=== PATIENT | female | born 1990 | race Caucasian/White ===

== ENCOUNTER 2021-10-21 13:03 | Emergency (ER) | payer OTHER, SELFPAY ==
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
[2021-10-21 13:14] VITALS: BP 115/64; PULSE 64; RESP 16; TEMP 36.6; O2SAT 100
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
== END 2021-10-21 14:09 | disposition home or self-care (01) ==
PROVIDERS: Emergency Provider Nurse Practitioner Family; PCP Family Medicine
DX: M79.642 Pain in left hand (principal); V49.60XA Unspecified car occupant injured in collision with unspecified motor vehicles in traffic accident, initial encounter
CPT/HCPCS: 73130; 99203; G0463

== ENCOUNTER 2025-02-24 16:11 | Outpatient (CLI) | payer BC, SELFPAY ==
--- NOTE | ~2025-02-24 | US_ITS ---
EXAMINATION: US soft tissue UE RT DATE: 02/24/2025 16:46 INDICATION: Palpable area at the anterior aspect of the lower right arm TECHNIQUE: Multiple grayscale and Doppler ultrasound images of the region of concern at the anterior aspect of the right forearm were obtained. COMPARISON: None FINDINGS: Palpable abnormality corresponds to a 7 x 7 x 3 mm ovoid lesion in the subcutaneous fat which is very hypoechoic peripherally surrounding couple small echogenic fat. Appearance suggests a small amount o f interstitial fluid with feathery edema related to inflammation of indeterminate etiology or contusi on with minimal amount of blood. IMPRESSION: 1. 7 x 7 x 3 mm lesion in the subcutaneous fat with appearance suggesting a focal small amount of flu id extending between small focus of normal subcutaneous fat most likely infectious, inflammatory or p osttraumatic in etiology. Reviewed, dictated and finalized at location A. IMPRESSION: 1. 7 x 7 x 3 mm lesion in the subcutaneous fat with appearance suggesting a foc al small amount of fluid extending between small focus of normal subcutaneous f at most likely infectious, inflammatory or posttraumatic in etiology.
--- OUTSIDE RECORDS SUMMARY | 2025-02-24 16:16 | XMS_ITS | Referral Summary ---
Author Organization [facility] Address [address] [place] [phone] Care Team Providers Care Coat Fitter Name Role Phone Makenzie Carrasco MD Primary Care Provider Colby Rodriguez MD Unavailable [phone] Encounters Date Type Department Care Team Description 02/23/2025 3:15 PM CDT Office Visit [address] [address] Colby Rodriguez MD Post-operative state (Primary Dx) 02/10/[address] [place] [phone] Colby Rodriguez MD low grade fever after surgery 02/10/[address] [place] [phone] Colby Rodriguez MD Additional Services Or Orders 02/07/2025 9:49 AM CDT - 02/10/2025 11:43 AM CDT Hospital Encounter [address] [address] Colby Rodriguez MD Beirne, Gregory J., Ruptured ectopic (Primary Dx); Pain Discharge Disposition: Discharge to home or self care 02/09/2025 3:19 PM CDT Anesthesia Event [facility] Operating Room [address] [place] [address] Frederick Zepeda MD Temme, Angela S., BENSON 02/09/2025 2:50 PM CDT - 02/09/2025 4:25 PM CDT Surgery [facility] Operating Room [facility] [place] [address] Colby Rodriguez MD ECTOPIC - LAPAROSCOPY, LEFT SALPINGOOPHORECTOMY 02/09/2025 12:26 PM CDT - 02/09/2025 11:59 PM CDT Hospital Encounter [facility] [address] [facility] [address] [place] [address] Spotting in Discharge Disposition: Discharge to home or self care 02/09/2025 Telephone [facility] [address] [phone] Colby Rodriguez MD OB 02/06/2025 Telephone [facility] [address] [place] [address] [place] [phone] Darlyn Padilla MD 02/04/2025 Telephone [facility] [address] [place] [address] [place] [phone] Colby Rodriguez MD 02/03/2025 Telephone [facility] [address] [place] [phone] Colby Rodriguez MD + test 01/01/2025 8:05 PM CDT E-Visit [facility] Medical [facility] [address] [place] [address] Marjorie Sinha, IZABELLA E-Visit for Sinus 01/01/2025 Patient Self-Triage [facility] [address] [place] [id number] Ann Marie, Generic Provider 12/09/2024 9:05 AM VP RESPIRATORY E-Visit [facility] Medical Group Virtual [address] [phone] Karen Ford NP Your Medications 12/09/2024 Patient Self-Triage [facility] [address] [place] [address] Mychart, Generic Provider from Last 3 Months Allergies Active Allergy Reactions Criticality Noted Date Comments Prednisone Anaphylaxis High 02/08/2021 Medications acetaminophen (TYLENOL) 325 mg tablet Take 2 tablets (650 mg total) by mouth every 6 (six) hours as needed for pain Active ibuprofen (ADVIL,MOTRIN) 600 mg tablet Take 1 tablet (600 mg total) by mouth 4 (four) times a day as needed for pain (pain) 90 tablet 5 10/07/20 25 Active progesterone (PROMETRIUM) 200 mg capsule Take 1 capsule (200 mg total) by mouth 2 (two) times a day 60 capsule 2 5 02/11/20 25 Discontinu ed(Stop Taking at Discharge) oxyCODONE (ROXICODONE) 5 mg immediate release tabletIndicatio ns:Pain Take 1 tablet (5 mg total) by mouth every 4 (four) hours as needed for pain 12 tablet 5 02/11/20 25 Discontinu ed(Stop Taking at Discharge) oxyCODONE (ROXICODONE) 5 mg immediate release tabletIndicatio ns:Pain Take 1 tablet (5 mg total) by mouth every 4 (four) hours as needed for pain 12 tablet 5 02/11/20 25 Discontinu ed(Stop Taking at Discharge) Active Problems Problem Noted Date Diagnosed Date Ruptured ectopic 02/07/2025 RUQ pain 01/16/2022 Assessment & Plan (01/16/2022 3:31 PM CDT): Likely related to gallbladder pathology, unclear prior workup. Will obtain prior records. Will repeat labs and imaging. BMI 30.0-30.9,adult 11/16/2021 Overview (11/16/2021): BMI Follow-up includes: nutrition counseling, exercise counseling and education provided. Assessment & Plan (01/16/2022 7:23 AM CDT): BMI Follow-up includes: nutrition counseling, exercise counseling and education provided. Anxiety with depression 11/16/2021 Assessment & Plan (01/16/2022 3:32 PM CDT): Chronic, improved. Continue to monitor without medication Assessment & Plan (11/16/2021 4:58 PM VP RESPIRATORY): Chronic, intermittent and uncontrolled -Given her prior intolerance of SSRI, I recommended starting Effexor. We review side effects of nausea, dizziness, drowsiness. -Discussed behavioral health therapy and patient is interested. Resources provided -Reviewed phone apps such as [employer] and [employer] -Also reviewed exercise in particular in detail. Suggested 3-5 exercise sessions per week -For any SI/HI, discussed calling the crisis hotline at 1/[phone] or or call Other specified hypothyroidism 11/16/2021 Overview (11/16/2021): Diagnosed in early . Assessment & Plan (01/16/2022 3:32 PM CDT): Has been off synthroid for about 2 months. Will reassess TSH today. If wnl, ok to remain off medication. Assessment & Plan (11/16/2021 5:04 PM VP RESPIRATORY): This was diagnosed during early course. She inquired whether Synthroid needed to be continued indefinitely. I advised that we reassess labs today and if normal, can discontinue Synthroid and plan to reassess off medications in 6 weeks. If TFTs are normal at that time, can defer further treatment. Encounter to establish care 11/16/2021 Assessment & Plan (11/16/2021 4:57 PM VP RESPIRATORY): Patient was oriented to practice. I advised that she call office for any urgent concerns and reserve [employer] communication for nonurgent issues. She is aware that most lab/test results will be communicated through [employer] if this is set up. Discussed that she should schedule apt for any new symptoms and always inform me of any worsened symptoms that have been previously discussed. All questions were answered Estimated Date of Delivery Comme nts Yes 10/17/2025 Resolved Problems Problem Noted Date Diagnosed Date Resolved Date Intrauterine 07/19/202108/30 Encounter for care or examin ation of mother immediately after delivery 07/19/2021 08/30/2021 Positive testing for group B Streptococcus 07/04/2021 08/30/2021 Immunizations Immunization Administration Dates Next Due Influenza, Quadrivalent, Spl it, Preservative Free, Intramuscular 09/05/2018 Influenza, Unspecified 08/31/2021 Pfizer SARS-CoV-2 Monovalent Vaccination (12+ Yrs) PURPLE 06/23/2021 Tdap 05/09/2021,02/03/2019 Social History Tobacco Use Types Packs/Day Years Used Date Smoking Tobacco: Never Tobacco Cessation:Counseling Given: Not Answered AUDIT-C Answer Date Recorded Q1: How often do you have a drink containing alcohol? Never 02/09/2025 Q2: How many drinks containi ng alcohol do you have on a typical day when you are drinking? Patient does not drink Q3: How often do you have si x or more drinks on one occasion? Never 02/09/2025 PHQ-2 Answer Date Recorded PHQ-2 Total Score (If total score is 3 or more points, staff should administer the PHQ-9) 0 01/16/2022 [place] Depression Scale Answer Date Recorded [place] Depression Scale Total 7 07/21/2021 The thought of harming myself has occurred to me . Never 07/21/2021 Personal Safety Answer Date Recorded Have you ever been in or are you currently in a harmful physical or emotional relationship or is someone making you feel afraid or unsafe? Denies 02/09/2025 Estimated Date of Delivery Comme nts Yes 10/17/2025 Sex and Gender Information Value Date Recorded Sex Assigned at Not on file Legal Sex Female 10:39 AM VP RESPIRATORY Gender Identity Female 11/15/2021 10:21 PM VP RESPIRATORY Sexual Orientation Straight 11/15/2021 10 :21 PM VP RESPIRATORY Last Filed Vital Signs Vital Sign Reading Time Taken Comments Blood Pressure 119/58 02/10/2025 8:22 AM CDT Pulse 67 02/10/2025 8:22 AM CDT Temperature 36.3 C (97.3 F) 02/10/2025 8:22 AM CDT Respiratory Rate 16 02/10/2025 8:22 AM CDT Oxygen Saturation 100% 02/10/2025 8:22 AM CDT Inhaled Oxygen Concentration - - Weight 63.5 kg (140 lb) 02/09/2025 3:05 PM CDT Height 160 cm (5' 2.99 ) 02/23/2025 3:03 PM CDT Body Mass Index 24.8 02/09/2025 3:05 PM CDT Plan of Treatment Not on file Procedures Procedure Name Priority Date/Time Associated Diagnosis Comments CBC WITHOUT DIFFERENTIAL Routine 02/13/2025 8:33 AM CDT Ectopic , unspecified location, unspecified whether intrauterine present HCG, BLOOD, QUANTITATIVE Routine 02/13/2025 8:33 AM CDT Ectopic , unspecified location, unspecified whether intrauterine present SURGICAL PATHOLOGY Routine 02/09/2025 3: 57 PM CDT Pain TX AN PROCEDURE PLACEHOLDER Routine 02/09/2025 3:32 PM CDT TX AN ELECTIVE ENDOTRACHEAL AIRWAY Routine 02/09/2025 3:32 PM CDT LAPAROSCOPIC SALPINGECTOMY 02/09/2025 3:18 PM CDT pain US OB UNDER 14 WEEKS Schedule THEO, Read THEO (Appt Today, Awaiting Results) 02/09/2025 12:26 PM CDT Spotting in HCG, BLOOD, QUANTITATIVE STAT 02/09/2025 8:22 AM CDT CBC WITHOUT DIFFERENTIAL STAT 02/09/2025 8:22 AM CDT DIFFERENTIAL AUTO STAT 02/08/2025 5:0 2 AM CDT HCG, BLOOD, QUANTITATIVE STAT 02/08/2025 5:02 AM CDT CBC WITH AUTO DIFFERENTIAL STAT 02/08/2025 5:02 AM CDT US OB UNDER 14 WEEKS W ENDOVAGINAL ED 02/07/2025 1:21 PM CDT POCT HCG, URINE Routine 02/07/2025 10:43 AM CDT URINALYSIS, MICROSCOPIC ONLY STAT 02/07/2025 10:38 AM CDT URINALYSIS AND REFLEX TO MICROSCOPIC AND CULTURE STAT 02/07/2025 10:38 AM CDT ADD ON LAB TEST Add-On 02/07/2025 10:33 AM CDT EGFR STAT 02/07/2025 10:25 AM CDT HCG, BLOOD, QUANTITATIVE STAT 02/07/2025 10:25 AM CDT DIFFERENTIAL AUTO STAT 02/07/2025 10: 25 AM CDT LIPASE STAT 02/07/2025 10:25 AM CDT COMPREHENSIVE METABOLIC PANEL STAT 02/07/2025 10:25 AM CDT CBC WITH AUTO DIFFERENTIAL STAT 02/07/2025 10:25 AM CDT ECG 12-LEAD STAT 02/07/2025 9:57 AM CDT PROGESTERONE Routine 02/06/2025 7:51 AM CDT Absence of menstruation HCG, BLOOD, QUANTITATIVE Routine 02/06/2025 7:51 AM CDT Absence of menstruation PROGESTERONE Routine 02/03/2025 12:32 PM CDT Spotting in HCG, BLOOD, QUANTITATIVE Routine 02/03/2025 12:32 PM CDT Spotting in PAP AND HPV, REFLEX TO HPV GENOTYPES Routine 11/12/2024 11:17 AM VP RESPIRATORY Screening for cervical cancer from Last 3 Months or Most Recently Relevant to Health Maintenance Results * CBC without differential (02/13/2025 8:33 AM CDT) WBC 10.7 3.8 - 10.8 Thousand/u L [facility] RBC, POC 4.13 3.80 - 5.10 Million/uL [facility] Hgb 12.3 11.7 - 15.5 g/dL [facility] Hct 37.3 35.0 - 45.0 % [facility] MCV 90.3 80.0 - 100.0 fL [facility] MCH 29.8 27.0 - 33.0 pg [facility] MCHC 33.0 32.0 - 36.0 g/dL [facility] Comment: For adults, a slight decrease in the calculated MCHC value (in the range of 30 to 32 g/dL) is most likely not clinically significant; however, it should be interpreted with caution in correlation with other red cell parameters and the patient's clinical condition. Rdw 12.3 11.0 - 15.0 % [facility] Platelets 246 140 - 400 Thousand/u L [facility] MPV 11.0 7.5 - 12.5 fL [facility] Blood 02/13/2025 8:33 AM CDT 02/13/2025 8:33 AM CDT us Colby Rodriguez MD LAB BLOOD ORDERABLES Final Res ult [facility] [address] [address] [facility] [place] [address] * (ABNORMAL) hCG, blood, quantitative (02/13/2025 8:33 AM CDT) HCG, quant 55(H) mIU/mL [facility] Comment: Reference Range Non or premenopausal <5 Postmenopausal <10 Values from different assay methods may vary. The use of this assay to monitor or to diagnose patients with cancer or any condition unrelated to has not been cleared or approved by the FDA or the lapel padder blindstitch of the assay. Blood 02/13/2025 8:33 AM CDT 02/13/2025 8:33 AM CDT us Colby Rodriguez MD LAB BLOOD ORDERABLES Final Res ult [facility] [place] [address] [place] [address] * Surgical pathology (02/09/2025 3:57 PM CDT) Tissue (Endometrial curettings) 02/09/2025 3:57 PM CDT Comment:Specimen placed in f ormalin at end of procedure Tissue specimen (specimen) (Ovary(ies) with or without tube, non-tumor) 02/09/2025 4:15 PM CDT Comment:Formalin added post procedure Narrative PATHOLOGY [facility] - 02/10/2025 2:[address] PM [address]T [address] [address] Tele: Larissa Stahl MD - Educational Specialist Note to Patients: This report may contain a detailed description of human tissue sent by a health care provider to the laboratory for pathologic evaluation. The content of this report is essential for diagnosis and may provide important critical findings. This information may be unfamiliar to patients to review without a medical professional present. It is advised that the patient review this report in the presence of a health care provider who can answer questions and explain the details. SURGICAL PATHOLOGY REPORT Patient Name: REGGIE BASURTO Address: [address] [place] [address] Gender: F : 1990 (Age: 34) Service: Surgery Location: [id number], Hospital #: [id number] Patient Type: [facility] INPATIENT Taken: 02/09/2025 Received 02/09/2025 Reported: 02/10/2025 Physician(s): Tre Rosas M.D. DIAGNOSIS: Uterus, endometrium, curettage: - Gestational endometrium - No evidence of hyperplasia or malignancy Ovary, left, oophorectomy: - Hemorrhagic corpus luteum cyst Fallopian tube, left, salpingectomy: - Dilated fallopian tube with immature chorionic villi consistent with ectopic [facility]/02/10/2025 14:41 Examining Pathologist: Yusuf Campos M.D. Report Reviewed and Electronically Signed By Yusuf Campos M.D. SPECIMEN TYPE: A: ENDOMETRIAL CURETTINGS B: LEFT FALLOPIAN TUBE AND LEFT OVARY CLINICAL IMPRESSION AND HISTORY: Pain, ectopic GROSS DESCRIPTION: A. Received in formalin labeled with REGGIE CAMPNCK and endometrial curettings are multiple red-brown tissue curettings measuring 4.3 x 3.3 x 0.3 cm in aggregate. The specimen is placed in a filter bag. Process Mold Technician sections are submitted in cassette labeled A1. B. Received in formalin labeled with REGGIE CAMPNCK and left fallopian tubes and left ovary is a 14.3 g, 5.3 x 3.3 x 1.5 disrupted cystic ovary with attached 6 x 1 cm fallopian tube with fimbria. The surface of the ovary is smooth. The presumed internal surface of the ovary is smooth containing blood. There are no gross solid areas or papillary vegetations. Sections of the fallopian tubes show a dilated lumen containing blood. There is a 0.8 cm paratubal cyst. Process Mold Technician sections are submitted as follows: B1-B4 - Disrupted cystic ovary, B5 - Fallopian tube [facility]/02/09/2025 17:49 LKB,CU MICROSCOPIC DESCRIPTION: Microscopic examination supports the above captioned diagnosis. Clerical Data Follows A; [id number] B; [id number] REPORT IMAGES AND/OR SCANNED DOCUMENTS ONLY VIEWABLE IN PDF FORMAT The immunohistochemical test(s) cited in this report, if any, was developed and its performance characteristics determined by [facility] Pathology Department. It has not been cleared or approved by the U.S. Food and Drug Administration. The FDA has determined that such clearance or approval is not necessary. This test is used for clinical purposes. It should not be regarded as investigational or for research. [facility] Laboratory is certified under the Clinical Laboratory Improvement Amendments of 1988 (CLIA) as qualified to perform high complexity testing. Immunostains were performed on formalin-fixed paraffin embedded tissue using a polymer diaminobenzidine chromogen detection system. Antibodies used may include clone SP1 (rabbit monoclonal, estrogen receptor), clone 1E2 (rabbit monoclonal progesterone receptor), Ki-67 (rabbit monoclonal, 30-9), CD117 (rabbit polyclonal, c-kit), and anti-Her-2/estevan (4B5) (rabbit monoclonal primary antibody). In the event that immunohistochemistry or special stains have been performed, attending physician has confirmed appropriateness of controls. Frozen section, operating room consultation, gross examination and dissection, and case sign out may have been performed in part or completely in the following laboratories: [facility], [address] [place] [address], [address] [place] [address]. Colby Rodriguez MD LAB PATHOLOGY ORDERABLES Final Result PATHOLOGY [facility] Laboratory Receiving [address] [place] [address] * TX AN ELECTIVE ENDOTRACHEAL AIRWAY, TX AN PROCEDURE PLACEHOLDER (02/09/2025 3:32 PM CDT) Narrative Lily Israel CRNA - 02/09/2025 3:32 PM CDT Lily Israel CRNA 02/09/2025 3:32 PM Airway Patient location: OR Urgency: elective Indications for airway management: anesthesia Difficult airway: no Staff: Supervising provider: Frederick Zepeda MD Placed by: FISHING ROD TRIMMER: Lily Israel CRNA Emergent airway documentation: Risks and benefits discussed: yes Consent obtained: yes Consent given by: patient Airway prep: Preoxygenated: yes Patient position: sniffing Mask difficulty assessment: 1 - vent by mask Sedation level during airway: GA Final airway details: Final airway type: endotracheal airway Tube type: ETT ETT size: 7.0 mm Cuffed: yes Technique used for successful ETT placement: video laryngoscopy Devices/Methods used in placement: stylet Insertion site: oral Blade type: Daniel Video blade type: Mejia Blade size: 3 Cormack-Lehane (video): grade I - full view of glottis Cuff volume: 10 mL Cuff inflated with: air ETT to lips: 22 cm Placement verified by: auscultation and CO2 detection Airway secured with: silk tape Number of attempts: 1 us Frederick Zepeda MD ANESTHESIA ORDERA BLES Final Result * US OB Under 14 Weeks (02/09/2025 12:26 PM CDT) Cul de Sac Free fluid visualized VIEWPOINT Anatomical Region Laterality Modality Abdomen N/A Ultrasound 02/09/2025 12:3 3 PM CDT Impressions 02/09/2025 1:57 PM CDT The endometrium is thickened. No intrauterine gestational sac is visualized. The left ovary is enlarged and has unilocular non-simple cysts of probable hemorrhagic origin. The right ovary has a small cyst which may be a hemorrhagic corpus luteum but an ovarian ectopic is not excluded. The ovaries abut each other in the anterior cul-de-sac. No other adnexal masses are visualized. There is a moderate volume of free pelvic fluid with low level internal echoes, c/w a hemoperitoneum. IMP: PUL but the findings and clinical hx or concerning for an ectopic Dr. Rodriguez notified of the above. Narrative Procedure Note Lencho Valdovinos MD - 02/09/2025 IMPRESSION: The endometrium is thickened. No intrauterine gestational sac isvisualized. The left ovary is enlarged and has unilocular non-simplecysts of probable hemorrhagic origin. The right ovary has a small cystwhich may be a hemorrhagic corpus luteum but an ovarian ectopic is notexcluded. The ovaries abut each other in the anterior cul-de-sac. No otheradnexal masses are visualized. There is a moderate volume of free pelvicfluid with low level internal echoes, c/w a hemoperitoneum. IMP: PUL but the findings and clinical hx or concerning for an ectopicpregnancy Dr. Rodriguez notified of the above. us Colby Rodriguez MD IMG OB US PROCEDURES Final Res ult * (ABNORMAL) CBC without differential (02/09/2025 8:22 AM CDT) Pathologist [facility] WBC 10.95(H) 3.80 - 9.90 K/cumm Hgb 12.4 11.9 - 15.5 g/dL [facility] Hct 36.3 35.6 - 45.5 % [facility] Plt 250 150 - 400 K/cumm [facility] MPV 10.3 9.1 - 12.3 fL [facility] RBC 4.26 3.90 - 5.20 M/cumm [facility] MCV 85.2 81.3 - 96.4 fL [facility] MCH 29.1 27.1 - 33.3 pg [facility] MCHC 34.2 32.3 - 35.7 g/dL [facility] RDW CV 12.2 11.1 - 14.9 % [facility] RDW SD 37.5 35.7 - 48.1 fL [facility] NRBC abs 0.00 0.00 - 0.01 K/cumm [facility] Blood 02/09/2025 8:22 AM CDT 02/09/2025 8:22 AM CDT us Colby Rodriguez MD LAB BLOOD ORDERABLES Final Res ult [facility] [address] Department [place] [address] * (ABNORMAL) hCG, blood, quantitative (02/09/2025 8:22 AM CDT) hCG, quant 877.0(H) 0.0 - 5.0 IUnits/L Comment: Interpretive Data Male: < 5 IU/L Non- premenopausal Female: <5 IU/L The Renata hCG Beta Quant assay procedure was used. Results from different manufacturers or methods may not be comparable. Serial testing should be performed using the same method. Interpretive Data was last revised on 2023 Blood 02/09/2025 8:22 AM CDT 02/09/2025 8:22 AM CDT us Colby Rodriguez MD LAB BLOOD ORDERABLES Final Res ult [facility] [address] Department [place] [address] * (ABNORMAL) Differential, auto (02/08/2025 5:02 AM CDT) Neutrophil abs 7.88(H) 1.50 - 6.50 K/cumm Imm gran abs 0.05 0.00 - 0.10 K/cumm [facility] Lymphocyte abs 2.33 0.80 - 3.30 K/cumm [facility] Monocyte abs 0.43 0.20 - 0.80 K/cumm [facility] Eosinophil abs 0.17 0.00 - 0.50 K/cumm [facility] Basophil abs 0.04 0.00 - 0.10 K/cumm [facility] Neutrophil pct 72.2 % [facility] Comment: Interpretive Data Percent cell count reference ranges are not reported, since discordance with absolute values may lead to misinterpretation of CBC data. Current Interpretive Data was last revised on 2018. Imm gran pct 0.5 % [facility] Comment: Interpretive Data Percent cell count reference ranges are not reported, since discordance with absolute values may lead to misinterpretation of CBC data. Current Interpretive Data was last revised on 2018. Lymphocyte pct 21.4 % [facility] Comment: Interpretive Data Percent cell count reference ranges are not reported, since discordance with absolute values may lead to misinterpretation of CBC data. Current Interpretive Data was last revised on 2018. Monocyte pct 3.9 % [facility] Comment: Interpretive Data Percent cell count reference ranges are not reported, since discordance with absolute values may lead to misinterpretation of CBC data. Current Interpretive Data was last revised on 2018. Eosinophil pct 1.6 % [facility] Comment: Interpretive Data Percent cell count reference ranges are not reported, since discordance with absolute values may lead to misinterpretation of CBC data. Current Interpretive Data was last revised on 2018. Basophil pct 0.4 % [facility] Comment: Interpretive Data Percent cell count reference ranges are not reported, since discordance with absolute values may lead to misinterpretation of CBC data. Current Interpretive Data was last revised on 2018. Blood 02/08/2025 5:02 AM CDT 02/08/2025 5:05 AM CDT Ro MG LAB BLOOD ORDERABLES Fin al Result [facility] [address] Department [place] [address] * (ABNORMAL) CBC with auto differential (02/08/2025 5:02 AM CDT) WBC 10.90(H) 3.80 - 9.90 K/cumm Hgb 11.8(L) 11.9 - 15.5 g/dL [facility] Hct 34.6(L) 35.6 - 45.5 % [facility] Plt 254 150 - 400 K/cumm [facility] MPV 10.3 9.1 - 12.3 fL [facility] RBC 4.02 3.90 - 5.20 M/cumm [facility] MCV 86.1 81.3 - 96.4 fL [facility] MCH 29.4 27.1 - 33.3 pg [facility] MCHC 34.1 32.3 - 35.7 g/dL [facility] RDW CV 12.1 11.1 - 14.9 % [facility] RDW SD 38.3 35.7 - 48.1 fL [facility] NRBC abs 0.00 0.00 - 0.01 K/cumm [facility] Blood 02/08/2025 5:02 AM CDT 02/08/2025 5:05 AM CDT Ro MG LAB BLOOD ORDERABLES Fin al Result Performing Organization Address [facility] Co de Phone Number [facility] [address] [facility] [place] [address] * (ABNORMAL) hCG, blood, quantitative (02/08/2025 5:02 AM CDT) hCG, quant 646.0(H) 0.0 - 5.0 IUnits/L Comment: Interpretive Data Male: < 5 IU/L Non- premenopausal Female: <5 IU/L The Renata hCG Beta Quant assay procedure was used. Results from different manufacturers or methods may not be comparable. Serial testing should be performed using the same method. Interpretive Data was last revised on 2023 Blood Venous blood specimen / Unknown 02/08/2025 5:02 AM CDT 02/08/2025 5:05 AM CDT Ro MG LAB BLOOD ORDERABLES Donal muriel Result - Final Performing Organization Address [facility] Co de Phone Number [facility] [address] [place] [place] [address] * US Ob Under 14 Weeks W Endovaginal (02/07/2025 1:21 PM CDT) Anatomical Region Laterality Modality Abdomen N/A Ultrasound 02/07/2025 1:54 PM CDT Impressions 02/07/2025 1:54 PM CDT 1. Findings consistent with a ruptured ectopic of indeterminate location, possibly within the left fallopian tube. Recommend obstetric consultation. The Critical results were discussed with HARITHA Fernandez by Dr. Alfredo Cheatham on 02/07/2025 at 1:32 PM Electronically signed by: Alfredo Cheatham MD, PHD Narrative 02/07/2025 1:54 PM CDT EXAMINATION: US OB UNDER 14 WEEKS W ENDOVAGINAL HISTORY: Vaginal bleeding, positive beta hCG COMPARISON: None FINDINGS: Uterus: The uterus is anteverted and has a length of 9.1 cm, AP dimension of 5.0 cm, and transverse dimension of 6.5 cm. No gestational sac is seen. The endometrial canal measures 16 mm. Right ovary: The right ovary measures 2.4 cm x 2.5 cm x 1.5 cm. Left ovary: The left ovary measures 4.6 cm x 6.4 cm x 5.0 cm. Complex cystic lesion in the left ovary may represent a hemorrhagic cyst. There are additional heterogeneous components superior to the left adnexa may represent additional blood products or a tubal ectopic, incompletely evaluated. Other: Blood products are noted throughout the pelvis which are highly concerning for a ruptured ectopic . Procedure Note Alfredo Cheatham MD PhD - 02/07/2025 EXAMINATION: US OB UNDER 14 WEEKS W ENDOVAGINAL HISTORY: Vaginal bleeding, positive beta hCG COMPARISON: None FINDINGS: Uterus: The uterus is anteverted and has a length of 9.1 cm, AP dimension of 5.0 cm, and transverse dimension of 6.5 cm. No gestational sac is seen. The endometrial canal measures 16 mm. Right ovary: The right ovary measures 2.4 cm x 2.5 cm x 1.5 cm. Left ovary: The left ovary measures 4.6 cm x 6.4 cm x 5.0 cm. Complex cystic lesion in the left ovary may represent a hemorrhagic cyst. There are additional heterogeneous components superior to the left adnexa may represent additional blood products or a tubal ectopic, incompletely evaluated. Other: Blood products are noted throughout the pelvis which are highly concerning for a ruptured ectopic . IMPRESSION: 1. Findings consistent with a ruptured ectopic of indeterminate location, possibly within the left fallopian tube. Recommend obstetric consultation. The Critical results were discussed with HARITHA Fernandez by Dr. Alfredo Cheatham on 02/07/2025 at 1:32 PM Electronically signed by: Alfredo Cheatham MD, PHD us Ro MG IMG OB US PROCEDURES Fin al Result * (ABNORMAL) POCT hCG, urine (02/07/2025 10:43 AM CDT) HCG, ur, POC Positive(A) Negative Lot Number [id number] QC Backgroud Clear Acceptable QC Control Line Acceptable Urine 02/07/2025 10:4 3 AM CDT oR MG POINT OF CARE TEST ORDER MALOU Final Result * (ABNORMAL) Urinalysis reflex to microscopic and culture Urine (02/07/2025 10:38 AM CDT) Color, ur Straw Yellow Clarity, ur Turbid(A) Clear [facility] Specific gravity, ur 1.005 1.003 - 1.030 [facility] pH, urine 7.0 [facility] Comment: Interpretive Data U rine pH is affected by diet, medications, systemic acid-base disturbances, and renal tubular function. pH may affect urinary stone formation. For example, urine pH below 6.0 may help reduce the tendency for calcium phosphate stones and pH greater than 6.0 may reduce the tendency for uric acid stone formation. Source: [facility] Current Interpretive Data was last revised on 2017 Protein, ur ql Negative Negative [facility] Glucose, ur ql Negative Negative [facility] Ketones, ur Negative Negative [facility] Bilirubin, ur Negative Negative [facility] Blood, ur 3+(A) Negative [facility] Urobilinogen, ur <2.0 <2.0 mg/dL [facility] Nitrite, ur Negative Negative [facility] Leukocyte esterase, ur 1+(A) Negative [facility] UA reflex comment Reflex to microscopic UA will be performed. [facility] Urine 02/07/2025 10:3 8 AM CDT 02/07/2025 10:38 AM CDT Ro MG LAB MICROBIOLOGY - GENER AL ORDERABLES Final Result [facility] [address] Department [place] [address] * (ABNORMAL) Urinalysis, microscopic only (02/07/2025 10:38 AM CDT) Pathologist [facility] WBC, ur 6-10(A) 0 - 5 /HPF RBC, ur 11-20(A) 0 - 2 /HPF [facility] Epithelial cells, squamous, ur 6-10(A) 0 - 5 /HPF [facility] Comment:Suggestive of contam ination. Consider recollection by clean catch. Bacteria, ur 1+(A) [facility] Culture Reflex Comment Reflex conditions for urine culture (WBC >10) not met. [facility] Urine 02/07/2025 10:3 8 AM CDT 02/07/2025 10:43 AM CDT Ro MG LAB URINE ORDERABLES Fin al Result Performing Organization Address City/[facility]/ZIP Co de Phone Number [facility] [address] [place] [place] [address] * hCG, blood, quantitative - Add on lab test (02/07/2025 10:33 AM CDT) [facility] Acceptable Yes Blood 02/07/2025 10:3 3 AM CDT 02/07/2025 10:33 AM CDT Narrative [facility] - 02/07/2025 10:34 AM CDT Name of Test->hCG, blood, quantitative [place] LAB BLOOD ORDERABLES Fin al Result [facility] [address] [place] [employer] [place] [address] * eGFR (02/07/2025 10:25 AM CDT) [facility] eGFR >90 >=60 mL/min/1. 73 m2 Comment: Interpretive Data Reference Interval Normal >/= 90 mL/min/1.73m2 Mildly decreased* 60 - 89 mL/min/1.73m2 Mildly to moderately decreased 45 - 59 mL/min/1.73m2 Moderately to severely decreased 30 - 44 mL/min/1.73m2 Severely decreased 15 - 29 mL/min/1.73m2 Kidney Failure < 15 mL/min/1.73m2 *Relative to young adult level Estimated glomerular filtration rate is determined by the 2020 CKD-EPI equation recommended by the National Kidney Foundation (A Unifying Approach to GFR Estimation: Recommendations of the NKF-ASK Task Force on Reassessing the Inclusion of Race in Diagnosing Kidney Disease, JASN 202). The CKD-EPI equation should not be used for patients with unstable renal function and has not been validated in children and those over 70. Current interpretive data was last reviewed 2021. Blood 02/07/2025 10:2 5 AM CDT 02/07/2025 10:29 AM CDT Ro MG LAB BLOOD ORDERABLES Fin al Result [facility] [address] Department [place] [address] * (ABNORMAL) Differential, auto (02/07/2025 10:25 AM CDT) Neutrophil abs 14.41(H) 1.50 - 6.50 K/cumm Imm gran abs 0.09 0.00 - 0.10 K/cumm [facility] Lymphocyte abs 2.08 0.80 - 3.30 K/cumm [facility] Monocyte abs 0.55 0.20 - 0.80 K/cumm [facility] Eosinophil abs 0.08 0.00 - 0.50 K/cumm [facility] Basophil abs 0.05 0.00 - 0.10 K/cumm [facility] Neutrophil pct 83.4 % [facility] Comment: Interpretive Data Percent cell count reference ranges are not reported, since discordance with absolute values may lead to misinterpretation of CBC data. Current Interpretive Data was last revised on 2018. Imm gran pct 0.5 % [facility] Comment: Interpretive Data Percent cell count reference ranges are not reported, since discordance with absolute values may lead to misinterpretation of CBC data. Current Interpretive Data was last revised on 2018. Lymphocyte pct 12.1 % [facility] Comment: Interpretive Data Percent cell count reference ranges are not reported, since discordance with absolute values may lead to misinterpretation of CBC data. Current Interpretive Data was last revised on 2018. Monocyte pct 3.2 % [facility] Comment: Interpretive Data Percent cell count reference ranges are not reported, since discordance with absolute values may lead to misinterpretation of CBC data. Current Interpretive Data was last revised on 2018. Eosinophil pct 0.5 % [facility] Comment: Interpretive Data Percent cell count reference ranges are not reported, since discordance with absolute values may lead to misinterpretation of CBC data. Current Interpretive Data was last revised on 2018. Basophil pct 0.3 % [facility] Comment: Interpretive Data Percent cell count reference ranges are not reported, since discordance with absolute values may lead to misinterpretation of CBC data. Current Interpretive Data was last revised on 2018. Blood 02/07/2025 10:2 5 AM CDT 02/07/2025 10:29 AM CDT Ro MG LAB BLOOD ORDERABLES Fin al Result [facility] [address] Department [place] [address] * (ABNORMAL) CBC with auto differential (02/07/2025 10:25 AM CDT) WBC 17.26(H) 3.80 - 9.90 K/cumm Hgb 12.2 11.9 - 15.5 g/dL [facility] Hct 35.6 35.6 - 45.5 % [facility] Plt 262 150 - 400 K/cumm [facility] MPV 10.4 9.1 - 12.3 fL [facility] RBC 4.20 3.90 - 5.20 M/cumm [facility] MCV 84.8 81.3 - 96.4 fL [facility] MCH 29.0 27.1 - 33.3 pg [facility] MCHC 34.3 32.3 - 35.7 g/dL [facility] RDW CV 12.1 11.1 - 14.9 % [facility] RDW SD 37.5 35.7 - 48.1 fL [facility] NRBC abs 0.00 0.00 - 0.01 K/cumm [facility] Blood Venous blood specimen / Unknown 02/07/2025 10:25 AM CDT 02/07/2025 10:29 AM CDT [place] LAB BLOOD ORDERABLES Fin al Result Performing Organization Address City/[facility] Co de Phone Number [facility] [address] Department [employer] [place], [place] [id number] * (ABNORMAL) hCG, blood, quantitative (02/07/2025 10:25 AM CDT) hCG, quant 726.0(H) 0.0 - 5.0 IUnits/L Comment: Interpretive Data Male: < 5 IU/L Non- premenopausal Female: <5 IU/L The Renata hCG Beta Quant assay procedure was used. Results from different manufacturers or methods may not be comparable. Serial testing should be performed using the same method. Interpretive Data was last revised on 2023 Blood 02/07/2025 10:2 5 AM CDT 02/07/2025 10:29 AM CDT [place] LAB BLOOD ORDERABLES Fin al Result [facility] [address] Department [employer] [place], [place] [id number] * Lipase (02/07/2025 10:25 AM CDT) Lipase 22 10 - 99 Units/L Blood Venous blood specimen / Unknown 02/07/2025 10:25 AM CDT 02/07/2025 10:29 AM CDT Ro MG LAB BLOOD ORDERABLES Fin al Result [facility] [address] Department [place] [address] * Comprehensive metabolic panel (02/07/2025 10:25 AM CDT) Sodium 138 135 - 145 mmol/L Potassium, pl 4.2 3.3 - 4.9 mmol/L [facility] Chloride 105 97 - 110 mmol/L [facility] CO2 23 22 - 32 mmol/L [facility] Anion gap 10 2 - 15 mmol/L [facility] BUN 9 6 - 25 mg/dL [facility] Creatinine 0.78 0.60 - 1.10 mg/dL [facility] Glucose 97 70 - 199 mg/dL [facility] Comment: Interpretive Data Fasting glucose >/= 126 mg/dl is diagnostic for diabetes. Fasting is defined as no caloric intake for at least 8 hours. Fasting glucose between 100 mg/dl to 125 mg/dl is diagnostic of prediabetes. In a patient with classic symptoms of hyperglycemia or hyperglycemic crisis, a random glucose >/= 200 mg/dl is diagnostic for diabetes. In the absence of unequivocal hyperglycemia, results should be confirmed by repeat testing. The classification and Diagnosis of Diabetes Diabetes Care 2021; 46: S19-S40. Current interpretive data was last revised 2022. Calcium 9.0 8.5 - 10.3 mg/dL [facility] Bilirubin, total 0.7 0.1 - 1.2 mg/dL [facility] Protein, pl 6.8 6.5 - 8.5 g/dL [facility] Albumin 4.4 3.5 - 5.0 g/dL [facility] Alk phos 59 40 - 130 Units/L [facility] ALT 22 7 - 45 Units/L [facility] AST 21 10 - 45 Units/L [facility] Comment:Slightly Hemolyzed S pecimen Blood 02/07/2025 10:2 5 AM CDT 02/07/2025 10:29 AM CDT Ro MG LAB BLOOD ORDERABLES Fin al Result Performing Organization Address City/[facility] Co de Phone Number [facility] [address] Department [place] [address] * ECG 12 lead (02/07/2025 9:57 AM CDT) 02/07/2025 9:57 AM CDT Narrative [facility] - 02/07/2025 3:50 PM CDT Vent Rate: 70 bpm RR Interval: 847 msec TX Interval: 148 msec QRS Duration: 96 msec QT Interval: 372 msec QTC Interval: 393 msec P-R-T Bend: 1 - -2 - 41 degrees IMPRESSION: SINUS RHYTHM POSSIBLE LEFT ATRIAL ENLARGEMENT POSSIBLE RIGHT VENTRICULAR CONDUCTION DELAY POSSIBLE LEFT VENTRICULAR HYPERTROPHY NONSPECIFIC T-WAVE ABNORMALITY ABNORMAL ECG Electronically Signed By: Carlos Eduardo Gastelum [facility] Card Colby Rodriguez MD ECG ORDERABLES Final Result Performing Organization Address [facility] Co de Phone Number [facility] * Progesterone (02/06/2025 7:51 AM CDT) Progesterone 23.4 ng/mL [facility] Comment: Reference Ranges Female Follicular Phase < 1.0 Luteal Phase 2.6-21.5 Post menopausal < 0.5 1st Trimester 4.1-34.0 2nd Trimester 24.0-76.0 3rd Trimester 52.0-302.0 Blood 02/06/2025 7:51 AM CDT 02/06/2025 7:51 AM CDT Colby Rodriguez MD LAB BLOOD ORDERABLES Final Res ult Performing Organization Address [facility] Co de Phone Number [facility] [address] [place] [address] * (ABNORMAL) hCG, blood, quantitative (02/06/2025 7:51 AM CDT) HCG, quant 814(H) mIU/mL [facility] Comment: Reference Range Non or premenopausal <5 Postmenopausal <10 Values from different assay methods may vary. The use of this assay to monitor or to diagnose patients with cancer or any condition unrelated to has not been cleared or approved by the FDA or the lapel padder blindstitch of the assay. Blood 02/06/2025 7:51 AM CDT 02/06/2025 7:51 AM CDT Colby Rodriguez MD LAB BLOOD ORDERABLES Final Res ult Performing Organization Address City/[facility]/ZIP Co de Phone Number [facility] [address] [place] [address] * Progesterone (02/03/2025 12:32 PM CDT) Progesterone 7.9 ng/mL [facility] Comment: Reference Ranges Female Follicular Phase < 1.0 Luteal Phase 2.6-21.5 Post menopausal < 0.5 1st Trimester 4.1-34.0 2nd Trimester 24.0-76.0 3rd Trimester 52.0-302.0 Blood 02/03/2025 12:3 2 PM CDT 02/03/2025 12:32 PM CDT Colby Rodriguez MD LAB BLOOD ORDERABLES Final Res ult Performing Organization Address City/[facility]/ZIP Co de Phone Number [facility] [address] [place] [address] * (ABNORMAL) hCG, blood, quantitative (02/03/2025 12:32 PM CDT) HCG, quant 472(H) mIU/mL [facility] Comment: Reference Range Non or premenopausal <5 Postmenopausal <10 Values from different assay methods may vary. The use of this assay to monitor or to diagnose patients with cancer or any condition unrelated to has not been cleared or approved by the FDA or the lapel padder blindstitch of the assay. Blood 02/03/2025 12:3 2 PM CDT 02/03/2025 12:32 PM CDT us Colby Rodriguez MD LAB BLOOD ORDERABLES Final Res ult [facility] [address] [place] [address] * Pap and HPV, reflex to HPV Genotypes (11/12/2024 11:17 AM [facility]) Clinical indication Comment [facility] - 01 Comment:NEGATIVE FOR INTRAEP ITHELIAL LESION OR MALIGNANCY. Specimen adequacy: Comment [facility] - 01 Comment: Satisfactory for evaluation. Endocervical and/or squamous metaplastic cells (endocervical component) are present. Clinician provided ICD10 Comment [facility] - 01 Comment:Z12.4 Performed by Comment [facility] - 01 Comment:Trixie menezes, Enterprise Application Developer (ASCP) . . [facility] - 01 Note: Comment [facility] - 01 Comment: The Pap smear is a screening test designed to aid in the detection of premalignant and malignant conditions of the uterine cervix. It is not a diagnostic procedure and should not be used as the sole means of detecting cervical cancer. Both false-positive and false-negative reports do occur. Test methodology Comment [facility] - 01 Comment: This liquid based ThinPrep(R) pap test was screened with the use of an image guided system. HPV Aptima Negative Negative [facility] Comment: This nucleic acid amplification test detects fourteen high-risk HPV types (16,18,31,33,35,39,45,51,52,56,58,59,66,68) without differentiation. HPV Genotype Reflex Comment [facility] - 01 Comment:Criteria not met, HP V Genotype not performed. Thin prep-Endocervical 11/12/2024 11:17 AM [facility] 11/12/2024 Narrative [facility] - 11/15/2024 1:07 PM [facility] RESPIRATORY Performed at: - [address] [id number] [employer] Supervisor: Olinda Hammonds MD, Phone: [phone] Performed at: - [address] [id number] [employer] Supervisor: Olinda Hammonds MD, Phone: [phone] Specimen Comment: [id number] Specimen Comment: No. of containers..01 ThinPrep Vial Colby Rodriguez MD LAB CYTOLOGY ORDERABLES Final Result [facility] - 01 [facility] 02 from Last 3 Months or Most Recently Relevant to Health Maintenance Insurance Diversion [place]UE [employer] CHOICE [place] Advance Directives For more information, please contact: [phone] * Full Code (Latest Code Status on File) Date Activated Date Inactivated Comments 02/07/2025 3:46 PM 02/10/2025 3:43 PM * Full Code Date Activated Date Inactivated Comments 07/19/2021 5:18 AM 07/21/2021 4:34 PM * Full Code Date Activated Date Inactivated Comments 07/18/2021 12:21 PM 07/19/2021 5:18 AM Full CPR in case of cardiopulmonary arrest Care Teams Coat Fitter Relationship Specialty Start Date End Date Makenzie Carrasco MD [address] [place] [address] PCP - General Family Medicine 02/07/25 Colby Rodriguez MD [address] [facility] [address], [place] [address] Consulting Physician Obstetrics and Gynecology 02/09/25
--- OUTSIDE RECORDS SUMMARY | 2025-02-24 16:16 | XMS_ITS | Clinical Summary ---
Author Organization [facility] Address [address] [place] [phone] Care Team Providers Care Varnishing Machine Operator Name Role Phone Makenzie Carrasco MD Primary Care Provider Colby Rodriguez MD Unavailable [phone] Allergies Active Allergy Reactions Criticality Noted Date [...] medication Assessment & Plan (11/16/2021 4:58 PM STEWARD/STEWARDESS DINING ROOM): Chronic, intermittent and uncontrolled -Given her prior intolerance of SSRI, I recommended starting Effexor. We review side effects of nausea, dizziness, drowsiness. -Discussed behavioral health therapy and patient is interested. Resources provided -Reviewed phone apps such as [employer] and calm -Also reviewed exercise in particular in detail. Suggested 3-5 exercise sessions per week -For any SI/HI, discussed calling the crisis hotline at 1/[phone] or or call Other specified hypothyroidism 11/16/2021 Overview (11/16/2021): Diagnosed in early . Assessment & Plan (01/16/2022 3:32 PM CDT): Has been off synthroid for about 2 months. Will reassess TSH today. If wnl, ok to remain off medication. Assessment & Plan (11/16/2021 5:04 PM STEWARD/STEWARDESS DINING ROOM): This was diagnosed during early course. She inquired whether Synthroid needed to be continued indefinitely. I advised that we reassess labs today and if normal, can discontinue Synthroid and plan to reassess off medications in 6 weeks. If TFTs are normal at that time, can defer further treatment. Encounter to establish care 11/16/2021 Assessment & Plan (11/16/2021 4:57 PM STEWARD/STEWARDESS DINING ROOM): Patient was oriented to practice. I advised that she call office for any urgent concerns and reserve [facility] communication for nonurgent issues. She is aware that most lab/test results will be communicated through [employer] if this is set up. Discussed that [...] testing for group B Streptococcus 07/04/2021 08/30/2021 Encounters Date Type Department Care Team Description 02/23/2025 3:15 PM CDT Office Visit [facility] [address] [place] [phone] Colby Rodriguez MD Post-operative state (Primary Dx) 02/10/2025 Telephone [facility] [address] [place] [phone] Colby Rodriguez MD low grade fever after surgery 02/10/2025 Telephone [facility] [address] [address] Colby Rodriguez MD Additional Services Or Orders 02/09/2025 3:19 PM CDT Anesthesia Event [facility] Operating Room [address] [place] [address] Frederick Zepeda MD Temme, Angela S., CRNA 02/09/2025 2:50 PM CDT - 02/09/2025 4:25 PM CDT Surgery [facility] Operating Room [facility] [place] [address] Colby Rodriguez MD ECTOPIC - LAPAROSCOPY, LEFT SALPINGOOPHORECTOMY 02/09/2025 12:26 PM CDT - 02/09/2025 11:59 PM CDT Hospital Encounter [facility] [address] [facility] [address] [place] [address] Spotting in Discharge Disposition: Discharge to home or self care 02/09/2025 Telephone [facility] [address] [place] [phone] Colby Rodriguez MD OB US 02/07/2025 9:49 AM CDT - 02/10/2025 11:43 AM CDT Hospital Encounter [address] [phone] Colby Rodriguez MD Beirne, Gregory J., Ruptured ectopic (Primary Dx); Pain Discharge Disposition: Discharge to home or self care 02/06/2025 Telephone [facility] [address] [place] [phone] Darlyn Padilla MD 02/04/2025 Telephone [facility] [address] [place] [phone] Colby Rodriguez MD 02/03/2025 Telephone [facility] [address] [place] [phone] Colby Rodriguez MD + test 01/01/2025 8:05 PM CDT E-Visit [facility] Care [address] [place] [phone] Marjorie Sinha, IZABELLA E-Visit for Sinus 01/01/2025 Patient Self-Triage [facility] [address] [place] [phone] Graysonhart, Generic Provider 12/09/2024 9:05 AM STEWARD/STEWARDESS DINING ROOM E-Visit [address] [phone] Karen Ford, IZABELLA Your Medications 12/09/2024 Patient Self-Triage [facility] [address] [place] [address] Mychart, Generic Provider from Last 3 Months Immunizations Immunization Administration Dates Next Due Influenza, Quadrivalent, Spl it, Preservative Free, Intramuscular 09/05/2018 Influenza, Unspecified 08/31/2021 Pfizer SARS-CoV-2 Monovalent Vaccination (12+ Yrs) PURPLE 06/23/2021 Tdap 05/09/2021,02/03/2019 Surgical History Surgery Date Site/Laterality Comments WISDOM TOOTH EXTRACTION CYST REMOVAL Medical History Medical History Date Comments Anxiety post anxi ety Thyroid condition , complications of Family History Medical History Relation Name Comments No Known Problems Brother Hypertension Father Neuropathy Father Heart attack Maternal Grandfather smoker Maternal Grandfather Lung cancer Maternal Grandmother smoker Maternal Grandmother Heart disease Mother Hypertension Mother No Known Problems Paternal Grandfather No Known Problems Paternal Grandmother No Known Problems Sister Relation Name Status Comments Brother Alive Father Alive Maternal Grandfather Alive Maternal Grandmother Alive Mother Alive Paternal Grandfather Paternal Grandmother Sister Alive Social History Tobacco Use Types Packs/Day Years [...] staff should administer the PHQ-9) 0 01/16/2022 [place] Depression Scale Answer Date Recorded [place] Depression Scale Total 7 07/21/2021 The thought [...] on file Legal Sex Female 10:39 AM STEWARD/STEWARDESS DINING ROOM Gender Identity Female 11/15/2021 10:21 PM STEWARD/STEWARDESS DINING ROOM Sexual Orientation Straight 11/15/2021 10 :21 PM STEWARD/STEWARDESS DINING ROOM Obstetrics History Para Term AB IAB SAB Ectopic Multiple Livin g Live Births 3 2 2 0 2 2 Date Outcome GA Total Labor Labor/2nd/3rd Weight Sex Type Anes PTL Lauryn A1 A5 Name Clin 2018 Term 38w 0d 3.6 kg (7 lb 15 oz) M Vag-S pont Epidur al Livin g Michae l Vishal Comments:Delivered occ iput posterior-no episiotomy or laceration. No stitches 2020 Term 38w 3d 0h 25m 0h 20m/0h 05m 3.83 kg (8 lb 7.1 oz) F Vag-S pont Epidur al N Livin g 8 9 ANETA K,GIRL Gurpreet Singletary MD Complications:None Delivery Location:This Facil ity ([facility]) Current Comments labor at 32 weeks ge station resulting in limitation of activity and Procardia therapy for control of contractions. Delivery at 38 weeks gestation. Baby required intensive care at [facility] for about a week after delivery. Difficulty with breathing and possible on cone EM. Also report of hyperbilirubinemia. Last Filed Vital Signs Vital Sign Reading [...] 02/09/2025 3:05 PM CDT Plan of Treatment Health Maintenance Due Date Last Done Comments Hepatitis C Screening 1990 Varicella Vaccines (1 of 2 - 13+ 2-dose series) 2005 Hepatitis B Screening 2010 Depression Screening 01/16/2023 01/16/2022, 11/16/2021, 11/16/2021, Additional history exists Covid-19 Vaccine ( season) 2024 06/23/2021, 06/02/2021 Influenza Vaccine (Season Ended) 2025 08/31/2021, 09/05/2018 Cervical Cancer Screening 11/12/20252024, 06/15/2023, 06/13/2022 Regular Well Visit/Exam 18-64 11/12/2025 11/12/2024, 06/15/2023, 06/13/2022 DTaP/Tdap/Td Vaccine (3 - Td or Tdap) 05/09/2031 05/09/2021, 02/03/2019 HPV Vaccines Aged Out No longer eligi ble based on patient's age to complete this topic Pneumococcal vaccine <65 Aged Out No longer eligible based on patient's age to complete this topic Procedures Procedure Name Priority Date/Time Associated Diagnosis Comments CBC WITHOUT DIFFERENTIAL Routine 02/13/2025 8:33 AM CDT Ectopic , unspecified location, unspecified whether intrauterine present HCG, BLOOD, QUANTITATIVE Routine 02/13/2025 8:33 AM CDT Ectopic , unspecified location, unspecified whether intrauterine present SURGICAL PATHOLOGY Routine 02/09/2025 3: 57 PM CDT Pain GA AN PROCEDURE PLACEHOLDER Routine 02/09/2025 3:32 PM CDT GA AN ELECTIVE ENDOTRACHEAL AIRWAY Routine 02/09/2025 3:32 [...] TO HPV GENOTYPES Routine 11/12/2024 11:17 AM STEWARD/STEWARDESS DINING ROOM Screening for cervical cancer from Last 3 [...] 8:33 AM CDT 02/13/2025 8:33 AM CDT Colby Rodriguez MD LAB BLOOD ORDERABLES Final Res ult Performing Organization Address [facility] Co de Phone Number [facility] [address] [place] [address] * (ABNORMAL) hCG, blood, quantitative (02/13/2025 8:33 AM CDT) Pathologist [facility] HCG, quant 55(H) mIU/mL [facility] Comment: Reference Range Non or premenopausal <5 Postmenopausal <10 Values from different assay methods may vary. The use of this assay to monitor or to diagnose patients with cancer or any condition unrelated to has not been cleared or approved by the FDA or the security attendant of the assay. Blood 02/13/2025 8:33 AM CDT 02/13/2025 8:33 AM CDT Colby Rodriguez MD LAB BLOOD ORDERABLES Final Res ult Performing Organization Address [facility] Co de Phone Number [facility] [address] [place] [address] * Surgical pathology (02/09/2025 3:57 PM CDT) Tissue (Endometrial curettings) 02/09/2025 3:57 PM CDT Comment:Specimen placed in f ormalin at end of procedure Tissue specimen (specimen) (Ovary(ies) with or without tube, non-tumor) 02/09/2025 4:15 PM CDT Comment:Formalin added post procedure Narrative PATHOLOGY [facility] - 02/10/2025 2:[address]T [address] [address] Tele: Larissa Stahl MD - Obstetrics Gynecology Physician Note to Patients: This report may contain [...] PATHOLOGY REPORT Patient Name: REGGIE BASURTO Address: [address] [place] [address], [place] [address] Gender: F : 1990 (Age: 34) Service: Surgery Location: [place] [address], Hospital #: [id number] Patient Type: [facility] Taken: 02/09/2025 Received 02/09/2025 Reported: 02/10/2025 Physician(s): Tre Rosas M.D. DIAGNOSIS: Uterus, endometrium, curettage: - Gestational endometrium - No evidence of hyperplasia or malignancy Ovary, left, oophorectomy: - Hemorrhagic corpus luteum cyst Fallopian tube, left, salpingectomy: - Dilated fallopian tube with immature chorionic villi consistent with ectopic [facility]/02/10/2025 14:41 Examining Pathologist: Yusuf Campos M.D. Report Reviewed and Electronically Signed By Yusuf Campos M.D. SPECIMEN TYPE: A: ENDOMETRIAL CURETTINGS B: LEFT FALLOPIAN TUBE AND LEFT OVARY CLINICAL IMPRESSION AND HISTORY: Pain, ectopic GROSS DESCRIPTION: A. Received in formalin labeled with REGGIE BASURTO and endometrial curettings are multiple red-brown tissue curettings measuring 4.3 x 3.3 x 0.3 cm in aggregate. The specimen is placed in a filter bag. Dynamic Balancer sections are submitted in cassette labeled A1. B. Received in formalin labeled with REGGIE SB and left fallopian tubes and left ovary [...] There is a 0.8 cm paratubal cyst. Dynamic Balancer sections are submitted as follows: B1-B4 - Disrupted cystic ovary, B5 - Fallopian tube [facility]/02/09/2025 17:49 MARTIN KIM MICROSCOPIC DESCRIPTION: Microscopic examination supports the above captioned diagnosis. Clerical Data Follows A; 56224 B; [id number] REPORT IMAGES AND/OR SCANNED DOCUMENTS ONLY VIEWABLE IN PDF FORMAT The immunohistochemical test(s) cited in this report, if any, was developed and its performance characteristics determined by [facility] Pathology Department. It has not been cleared or approved by the U.S. Food and Drug Administration. The FDA has determined that such clearance or approval is not necessary. This test is used for clinical purposes. It should not be regarded as investigational or for research. [facility] Laboratory is certified under the Clinical Laboratory [...] part or completely in the following laboratories: [facility], [address] [facility], [address], [address] [place] [address], [place] [address]. us Colby Rodriguez MD LAB PATHOLOGY ORDERABLES Final Result PATHOLOGY [facility] Laboratory Receiving [address] [place], [place] [phone] * GA AN ELECTIVE ENDOTRACHEAL AIRWAY, GA AN PROCEDURE PLACEHOLDER (02/09/2025 3:32 PM CDT) Narrative Lily Israel CRNA - 02/09/2025 3:32 PM CDT Lily Israel CRNA 02/09/2025 3:32 PM Airway Patient location: OR Urgency: elective Indications for airway management: anesthesia Difficult airway: no Staff: Supervising provider: Frederick Zepeda MD Placed by: GRADES 7 8 TUTOR: Lily Israel CRNA Emergent airway documentation: Risks [...] CBC without differential (02/09/2025 8:22 AM CDT) WBC 10.95(H) 3.80 - 9.90 K/cumm Hgb 12.4 11.9 - 15.5 g/dL [facility] Hct 36.3 35.6 - 45.5 % [facility] Plt 250 150 - 400 K/cumm [facility] MPV 10.3 9.1 - 12.3 fL [facility] RBC 4.26 3.90 - 5.20 M/cumm [facility] MCV 85.2 81.3 - 96.4 fL [facility] MCH 29.1 27.1 - 33.3 pg [facility] MCHC 34.2 32.3 - 35.7 g/dL [facility] RDW CV 12.2 11.1 - 14.9 % [facility] RDW SD 37.5 35.7 - 48.1 fL [facility] NRBC abs 0.00 0.00 - 0.01 K/cumm [facility] Blood 02/09/2025 8:22 AM CDT 02/09/2025 8:22 AM CDT Colby Rodriguez MD LAB BLOOD ORDERABLES Final Res ult Performing Organization Address [facility] de Phone Number [facility] [address] [place] [address] * (ABNORMAL) hCG, blood, quantitative (02/09/2025 8:22 AM CDT) [facility] hCG, quant 877.0(H) 0.0 - 5.0 IUnits/L Comment: Interpretive Data Male: < 5 IU/L Non- premenopausal Female: <5 IU/L The Renata hCG Beta Quant assay procedure was used. Results from different manufacturers or methods may not be comparable. Serial testing should be performed using the same method. Interpretive Data was last revised on 2023 Blood 02/09/2025 8:22 AM CDT 02/09/2025 8:22 AM CDT Colby Rodriguez MD LAB BLOOD ORDERABLES Final Res ult Performing Organization Address [facility] Co de Phone Number [facility] [address] [facility] [employer] [address] * (ABNORMAL) Differential, auto (02/08/2025 5:02 AM CDT) [facility] Neutrophil abs 7.88(H) 1.50 - 6.50 K/cumm Imm gran abs 0.05 0.00 - 0.10 K/cumm [facility] Lymphocyte abs 2.33 0.80 - 3.30 K/cumm [facility] Monocyte abs 0.43 0.20 - 0.80 K/cumm [facility] Eosinophil abs 0.17 0.00 - 0.50 K/cumm [facility] Basophil abs 0.04 0.00 - 0.10 K/cumm [facility] Neutrophil pct 72.2 % [facility] Comment: Interpretive Data Percent cell count reference ranges are not reported, since discordance with absolute values may lead to misinterpretation of CBC data. Current Interpretive Data was last revised on 2018. Imm gran pct 0.5 % [facility] Comment: Interpretive Data Percent cell count reference ranges are not reported, since discordance with absolute values may lead to misinterpretation of CBC data. Current Interpretive Data was last revised on 2018. Lymphocyte pct 21.4 % [facility] Comment: Interpretive Data Percent cell count reference ranges are not reported, since discordance with absolute values may lead to misinterpretation of CBC data. Current Interpretive Data was last revised on 2018. Monocyte pct 3.9 % [facility] Comment: Interpretive Data Percent cell count reference ranges are not reported, since discordance with absolute values may lead to misinterpretation of CBC data. Current Interpretive Data was last revised on 2018. Eosinophil pct 1.6 % [facility] Comment: Interpretive Data Percent cell count reference ranges are not reported, since discordance with absolute values may lead to misinterpretation of CBC data. Current Interpretive Data was last revised on 2018. Basophil pct 0.4 % [facility] Comment: Interpretive Data Percent cell count reference ranges are not reported, since discordance with absolute values may lead to misinterpretation of CBC data. Current Interpretive Data was last revised on 2018. Blood 02/08/2025 5:02 AM CDT 02/08/2025 5:05 AM CDT Ro MG LAB BLOOD ORDERABLES Fin al Result [facility] [address] Department [place] [address] * (ABNORMAL) CBC with auto differential (02/08/2025 5:02 AM CDT) WBC 10.90(H) 3.80 - 9.90 K/cumm Hgb 11.8(L) 11.9 - 15.5 g/dL [facility] Hct 34.6(L) 35.6 - 45.5 % [facility] Plt 254 150 - 400 K/cumm [facility] MPV 10.3 9.1 - 12.3 fL [facility] RBC 4.02 3.90 - 5.20 M/cumm [facility] MCV 86.1 81.3 - 96.4 fL [facility] MCH 29.4 27.1 - 33.3 pg [facility] MCHC 34.1 32.3 - 35.7 g/dL [facility] RDW CV 12.1 11.1 - 14.9 % [facility] RDW SD 38.3 35.7 - 48.1 fL [facility] NRBC abs 0.00 0.00 - 0.01 K/cumm [facility] Blood 02/08/2025 5:02 AM CDT 02/08/2025 5:05 AM CDT Ro MG LAB BLOOD ORDERABLES Fin al Result Performing Organization Address [facility]/ZIP Co de Phone Number [facility] [address] [place], Neighbor! [place], [place] [phone] * (ABNORMAL) hCG, blood, quantitative (02/08/2025 5:02 AM CDT) [facility] hCG, quant 646.0(H) 0.0 - 5.0 IUnits/L [...] muriel Result - Final Performing Organization Address City/[facility]/ZIP Co de Phone Number [facility] [address] Department [employer] [place], [place] [id number] * US Ob Under 14 Weeks W [...] Acceptable Urine 02/07/2025 10:4 3 AM CDT Ro MG POINT OF CARE TEST ORDER MALOU Final Result * (ABNORMAL) Urinalysis reflex to microscopic and culture Urine (02/07/2025 10:38 AM CDT) Color, ur Straw Yellow Clarity, ur Turbid(A) Clear [facility] Specific gravity, ur 1.005 1.003 - 1.030 [facility] pH, urine 7.0 [facility] Comment: Interpretive Data U rine pH is affected by diet, medications, systemic acid-base disturbances, and renal tubular function. pH may affect urinary stone formation. For example, urine pH below 6.0 may help reduce the tendency for calcium phosphate stones and pH greater than 6.0 may reduce the tendency for uric acid stone formation. Source: [facility] [employer] Current Interpretive Data was last revised on 2017 Protein, ur ql Negative Negative [facility] Glucose, ur ql Negative Negative [facility] Ketones, ur Negative Negative [facility] Bilirubin, ur Negative Negative [facility] Blood, ur 3+(A) Negative [facility] Urobilinogen, ur <2.0 <2.0 mg/dL [facility] Nitrite, ur Negative Negative [facility] Leukocyte esterase, ur 1+(A) Negative [facility] UA reflex comment Reflex to microscopic UA will be performed. [facility] Urine 02/07/2025 10:3 8 AM CDT 02/07/2025 10:38 AM CDT Ro MG LAB MICROBIOLOGY - GENER AL ORDERABLES Final Result Performing Organization Address [facility] Co de Phone Number [facility] [address] Department [place] [address] * (ABNORMAL) Urinalysis, microscopic only (02/07/2025 10:38 AM CDT) WBC, ur 6-10(A) 0 - 5 /HPF RBC, ur 11-20(A) 0 - 2 /HPF [facility] Epithelial cells, squamous, ur 6-10(A) 0 - 5 /HPF [facility] Comment:Suggestive of contam ination. Consider recollection by clean catch. Bacteria, ur 1+(A) [facility] Culture Reflex Comment Reflex conditions for urine culture (WBC >10) not met. [facility] Urine 02/07/2025 10:3 8 AM CDT 02/07/2025 10:43 AM CDT Ro MG LAB URINE ORDERABLES Fin al Result Performing Organization Address [facility]/ZIP Co de Phone Number [facility] [address] Department [place] [address] * hCG, blood, quantitative - Add on lab test (02/07/2025 10:33 AM CDT) Acceptable Yes Blood 02/07/2025 10:3 3 AM CDT 02/07/2025 10:33 AM CDT Narrative [facility] - 02/07/2025 10:34 AM CDT Name of Test->hCG, blood, quantitative Ro MG LAB BLOOD ORDERABLES Fin al Result Performing Organization Address [facility] Co de Phone Number [facility] [address] Department [employer] [address] * eGFR (02/07/2025 10:25 AM CDT) eGFR >90 >=60 mL/min/1. 73 m2 Comment: [...] of Race in Diagnosing Kidney Disease, JASN 2020). The CKD-EPI equation should not be used for patients with unstable renal function and has not been validated in children and those over 70. Current interpretive data was last reviewed 2021. Blood 02/07/2025 10:2 5 AM CDT 02/07/2025 10:29 AM CDT Ro MG LAB BLOOD ORDERABLES Fin al Result Performing Organization Address [facility] Co de Phone Number [facility] [address] Department of Laboratories [place], [place] [id number] * (ABNORMAL) Differential, auto (02/07/2025 10:25 AM CDT) Pathologist [facility] Neutrophil abs 14.41(H) 1.50 - 6.50 K/cumm Imm gran abs 0.09 0.00 - 0.10 K/cumm [facility] Lymphocyte abs 2.08 0.80 - 3.30 K/cumm [facility] Monocyte abs 0.55 0.20 - 0.80 K/cumm [facility] Eosinophil abs 0.08 0.00 - 0.50 K/cumm [facility] Basophil abs 0.05 0.00 - 0.10 K/cumm [facility] Neutrophil pct 83.4 % [facility] Comment: Interpretive Data Percent cell count reference ranges are not reported, since discordance with absolute values may lead to misinterpretation of CBC data. Current Interpretive Data was last revised on 2018. Imm gran pct 0.5 % [facility] Comment: Interpretive Data Percent cell count reference ranges are not reported, since discordance with absolute values may lead to misinterpretation of CBC data. Current Interpretive Data was last revised on 2018. Lymphocyte pct 12.1 % [facility] Comment: Interpretive Data Percent cell count reference ranges are not reported, since discordance with absolute values may lead to misinterpretation of CBC data. Current Interpretive Data was last revised on 2018. Monocyte pct 3.2 % [facility] Comment: Interpretive Data Percent cell count reference ranges are not reported, since discordance with absolute values may lead to misinterpretation of CBC data. Current Interpretive Data was last revised on 2018. Eosinophil pct 0.5 % [facility] Comment: Interpretive Data Percent cell count reference ranges are not reported, since discordance with absolute values may lead to misinterpretation of CBC data. Current Interpretive Data was last revised on 2018. Basophil pct 0.3 % [facility] Comment: Interpretive Data Percent cell count reference ranges are not reported, since discordance with absolute values may lead to misinterpretation of CBC data. Current Interpretive Data was last revised on 2018. Blood 02/07/2025 10:2 5 AM CDT 02/07/2025 10:29 AM CDT Ro MG LAB BLOOD ORDERABLES Fin al Result [facility] [address] Department [place] [address] * (ABNORMAL) CBC with auto differential (02/07/2025 10:25 AM CDT) [facility] WBC 17.26(H) 3.80 - 9.90 K/cumm Hgb 12.2 11.9 - 15.5 g/dL [facility] Hct 35.6 35.6 - 45.5 % [facility] Plt 262 150 - 400 K/cumm [facility] MPV 10.4 9.1 - 12.3 fL [facility] RBC 4.20 3.90 - 5.20 M/cumm [facility] MCV 84.8 81.3 - 96.4 fL [facility] MCH 29.0 27.1 - 33.3 pg [facility] MCHC 34.3 32.3 - 35.7 g/dL [facility] RDW CV 12.1 11.1 - 14.9 % [facility] RDW SD 37.5 35.7 - 48.1 fL [facility] NRBC abs 0.00 0.00 - 0.01 K/cumm [facility] Blood Venous blood specimen / Unknown 02/07/2025 10:25 AM CDT 02/07/2025 10:29 AM CDT Ro MG LAB BLOOD ORDERABLES Fin al Result [facility] [address] Department [place] [address] * (ABNORMAL) hCG, blood, quantitative (02/07/2025 10:25 AM CDT) [facility] hCG, quant 726.0(H) 0.0 - 5.0 IUnits/L [...] AM CDT 02/07/2025 10:29 AM CDT Ro Apontekennedi MG LAB BLOOD ORDERABLES Fin al Result Performing Organization Address City/[facility]/ZIP Co de Phone Number [facility] [address] Department [place] [employer] [place] [address] * Lipase (02/07/2025 10:25 AM CDT) [facility] Lipase 22 10 - 99 Units/L Blood Venous blood specimen / Unknown 02/07/2025 10:25 AM CDT 02/07/2025 10:29 AM CDT Ro Giron PR LAB BLOOD ORDERABLES Fin al Result Performing Organization Address [facility] de Phone Number [facility] [address] Department [place] [address] * Comprehensive metabolic panel (02/07/2025 10:25 AM CDT) [facility] Sodium 138 135 - 145 mmol/L Potassium, pl 4.2 3.3 - 4.9 mmol/L [facility] Chloride 105 97 - 110 mmol/L [facility] CO2 23 22 - 32 mmol/L [facility] Anion gap 10 2 - 15 mmol/L [facility] BUN 9 6 - 25 mg/dL [facility] Creatinine 0.78 0.60 - 1.10 mg/dL [facility] Glucose 97 70 - 199 mg/dL [facility] Comment: Interpretive Data Fasting glucose [...] 2022. Calcium 9.0 8.5 - 10.3 mg/dL [facility] Bilirubin, total 0.7 0.1 - 1.2 mg/dL [facility] Protein, pl 6.8 6.5 - 8.5 g/dL [facility] Albumin 4.4 3.5 - 5.0 g/dL [facility] Alk phos 59 40 - 130 Units/L [facility] ALT 22 7 - 45 Units/L [facility] AST 21 10 - 45 Units/L [facility] Comment:Slightly Hemolyzed S pecimen Blood 02/07/2025 10:2 5 AM CDT 02/07/2025 10:29 AM CDT Ro MG LAB BLOOD ORDERABLES Fin al Result Performing Organization Address [facility] Co de Phone Number [facility] [address] Department [place] [address] * ECG 12 lead (02/07/2025 9:57 AM CDT) 02/07/2025 9:57 AM CDT Narrative [facility] - 02/07/2025 3:50 PM CDT Vent Rate: 70 bpm RR Interval: 847 msec GA Interval: 148 msec QRS Duration: 96 msec QT Interval: 372 msec QTC Interval: 393 msec P-R-T [place]: 1 - -2 - 41 degrees IMPRESSION: SINUS RHYTHM POSSIBLE LEFT ATRIAL ENLARGEMENT POSSIBLE RIGHT VENTRICULAR CONDUCTION DELAY POSSIBLE LEFT VENTRICULAR HYPERTROPHY NONSPECIFIC T-WAVE ABNORMALITY ABNORMAL ECG Electronically Signed By: Carlos Eduardo [facility]ast[facility] Card us Colby Rodriguez MD ECG ORDERABLES Final Result Performing Organization Address City/[facility] Co de Phone Number [facility] [employer] [facility] * Progesterone (02/06/2025 7:51 AM CDT) Progesterone 23.4 ng/mL [facility] Comment: Reference Ranges Female Follicular Phase < 1.0 Luteal Phase 2.6-21.5 Post menopausal < 0.5 1st Trimester 4.1-34.0 2nd Trimester 24.0-76.0 3rd Trimester 52.0-302.0 Blood 02/06/2025 7:51 AM CDT 02/06/2025 7:51 AM CDT Colby Rodriguez MD LAB BLOOD ORDERABLES Final Res ult Performing Organization Address [facility] Co de Phone Number [facility] [address] [place] [address] * (ABNORMAL) hCG, blood, quantitative (02/06/2025 7:51 AM CDT) HCG, quant 814(H) mIU/mL [facility] Comment: Reference Range Non or premenopausal <5 Postmenopausal <10 Values from different assay methods may vary. The use of this assay to monitor or to diagnose patients with cancer or any condition unrelated to has not been cleared or approved by the FDA or the security attendant of the assay. Blood 02/06/2025 7:51 AM CDT 02/06/2025 7:51 AM CDT Colby Rodriguez MD LAB BLOOD ORDERABLES Final Res ult Performing Organization Address [facility] Co de Phone Number [facility] [address] [place] [address] * Progesterone (02/03/2025 12:32 PM CDT) Progesterone 7.9 ng/mL [facility] Comment: Reference Ranges Female Follicular Phase < 1.0 Luteal Phase 2.6-21.5 Post menopausal < 0.5 1st Trimester 4.1-34.0 2nd Trimester 24.0-76.0 3rd Trimester 52.0-302.0 Blood 02/03/2025 12:3 2 PM CDT 02/03/2025 12:32 PM CDT Colby Rodriguez MD LAB BLOOD ORDERABLES Final Res ult Performing Organization Address City/[facility]/ZIP Co de Phone Number [facility] [address] [place] [address] * (ABNORMAL) hCG, blood, quantitative (02/03/2025 12:32 PM CDT) HCG, quant 472(H) mIU/mL [facility] Comment: Reference Range Non or premenopausal <5 Postmenopausal <10 Values from different assay methods may vary. The use of this assay to monitor or to diagnose patients with cancer or any condition unrelated to has not been cleared or approved by the FDA or the security attendant of the assay. Blood 02/03/2025 12:3 2 PM CDT 02/03/2025 12:32 PM CDT us Colby Rodriguez MD LAB BLOOD ORDERABLES Final Res ult [facility] [address] [place] [address] * Pap and HPV, reflex to HPV Genotypes (11/12/2024 11:17 AM STEWARD/STEWARDESS DINING ROOM) Pathologist [facility] Clinical indication Comment [facility] - 01 Comment:NEGATIVE FOR INTRAEP ITHELIAL LESION OR MALIGNANCY. Specimen adequacy: Comment [facility] - 01 Comment: Satisfactory for evaluation. Endocervical and/or squamous metaplastic cells (endocervical component) are present. Clinician provided ICD10 Comment [facility] - 01 Comment:Z12.4 Performed by Comment [facility] - 01 Comment:Trixie menezes, Shake Packer (ASCP) . . [facility] - 01 Note: [...] system. HPV Aptima Negative Negative [facility] 02 Comment: This nucleic acid amplification test detects fourteen high-risk HPV types (16,18,31,33,35,39,45,51,52,56,58,59,66,68) without differentiation. HPV Genotype Reflex Comment [facility] - Comment:Criteria not met, HP V Genotype not performed. Thin prep-Endocervical 11/12/2024 11:17 AM STEWARD/STEWARDESS DINING ROOM 11/12/2024 Narrative [facility] - 11/15/2024 1:07 PM STEWARD/STEWARDESS DINING ROOM Performed at: - [address] [id number] Factory Machine Computer Operator: Olinda Hammonds MD, Phone: [phone] Performed at: - [facility] [id number] Factory Machine Computer Operator: Olinda Hammonds MD, Phone: [phone] Specimen Comment: [id number] Specimen Comment: No. of containers..01 ThinPrep Vial Colby Rodriguez MD LAB CYTOLOGY ORDERABLES Final Result [facility] 02 from Last 3 Months or Most Recently Relevant to Health Maintenance [place] Advance Directives For more information, please contact: [phone] * Full Code (Latest Code Status on File) Date Activated Date Inactivated Comments 02/07/2025 3:46 PM 02/10/2025 3:43 PM * Full Code Date Activated Date Inactivated Comments 07/19/2021 5:18 AM 07/21/2021 4:34 PM * Full Code Date Activated Date Inactivated Comments 07/18/2021 12:21 PM 07/19/2021 5:18 AM Full CPR in case of cardiopulmonary arrest Care Teams Varnishing Machine Operator Relationship Specialty Start Date End Date Makenzie Carrasco MD [address] [address] PCP - General Family Medicine 02/07/25 Colby Rodriguez MD [address] [address] Consulting Physician Obstetrics and Gynecology 02/09/25
--- OUTSIDE RECORDS SUMMARY | 2025-02-24 16:16 | XMS_ITS | Encounter Summary ---
Author Organization [facility] Address [address] [place] [address] Care Team Providers Care Identity Management Developer Name Role Phone Vaishali Mendiola MD Primary Care Provider [phone] Makenzie Carrasco MD Primary Care Provider Colby Rodriguez MD Unavailable [phone] Encounter Details Date Type Department Care Team (Late st Contact Info) Description 01/18/2022 Telephone [facility] [address] [place] [address] Nicole Rod RDMS Social History Tobacco Use Types Packs/Day Years Used Date Smoking Tobacco: Never AUDIT-C Answer Date Recorded Q1: How often do you have a drink containing alc ohol? Never 07/18/2021 Average Number of Drinks Not on file 021 Q3: How often do you have si x or more drinks on one occasion? Never 07/18/2021 PHQ-2 Answer Date Recorded PHQ-2 Total Score (If total score is 3 or more points, staff should administer the PHQ-9) 0 01/16/2022 Briggs Depression Scale Answer Date Recorded Briggs Depression Scale Total 7 07/21/2021 The thought of harming myself has occurred to me . Never 07/21/2021 Comments No Sex and Gender Information Value Date Recorded Sex Assigned at Not on file Legal Sex Female 10:39 AM AUTOMATION/CONTROLS MANAGER Gender Identity Female 11/15/2021 10:21 PM AUTOMATION/CONTROLS MANAGER Sexual Orientation Straight 11/15/2021 10 :21 PM AUTOMATION/CONTROLS MANAGER documented as of this encounter Plan of Treatment Not on file documented as of this encounter Visit Diagnoses Not on filedocumented in this encounter Care Teams Identity Management Developer Relationship Specialty Start Date End Date Vaishali Mendiola MD PCP - General Family Medicine 11/16/21 02/06/25 Makenzie Carrasco MD [address] [facility] [address] [place] [address] PCP - General Family Medicine 02/07/25 Colby Rodriguez MD [address] [facility] [address], [place] [address] Consulting Physician Obstetrics and Gynecology 02/09/25 documented as of this encounter
--- OUTSIDE RECORDS SUMMARY | 2025-02-24 16:16 | XMS_ITS | Encounter Summary ---
Author Organization [facility] Healthcare Address [address] [place] [address] Care Team Providers Care Secondary Social Studies Teacher Name Role Phone Makenzie Carrasco MD Primary Care Provider Colby Rodriguez MD Unavailable [phone] Reason for Visit * Reason Comments Post-op Encounter Details Date Type Department Care Team (Late st Contact Info) Description 02/23/2025 3:15 PM CDT Office Visit [facility] [address] [address] Colby Rodriguez MD [facility] [address] Post-operative state (Primary Dx) Social History Tobacco Use Types Packs/Day Years [...] staff should administer the PHQ-9) 0 01/16/2022 [place] Depression Scale Answer Date Recorded [place] Depression Scale Total 7 07/21/2021 The thought [...] on file Legal Sex Female 10:39 AM ELECTRONICS TEST ENGINEER Gender Identity Female 11/15/2021 10:21 PM ELECTRONICS TEST ENGINEER Sexual Orientation Straight 11/15/2021 10 :21 PM ELECTRONICS TEST ENGINEER documented as of this encounter Last Filed Vital Signs Vital Sign Reading Time Taken Comments Blood Pressure - - Pulse - - Temperature - - Respiratory Rate - - Oxygen Saturation - - Inhaled Oxygen Concentration - - Weight - - Height 160 cm (5' 2.99 ) 02/23/2025 3:03 PM CDT Body Mass Index - - documented in this encounter Progress Notes * Colby Rodriguez MD - 02/23/2025 3:15 PM CDT Subjective/Objective Patient ID: Mirlande Alfredo is a 34 y.o. female. Chief Complaint Post-op HPI Mirlande comes in for her postop after her laparoscopic left salpingectomy for an ectopic and a hemorrhagic cyst. Review of Systems Constitutional: Negative. HENT: Negative. Eyes: Negative. Respiratory: Negative. Cardiovascular: Negative. Gastrointestinal: Negative. Endocrine: Negative. Genitourinary: Negative. Skin: Negative. Allergic/Immunologic: Negative. Neurological: Negative. Psychiatric/Behavioral: Negative. Physical Exam All her laparoscopic incisions are well healed and her test is negative. Assessment/Plan normal postoperative course patient will gradually return to her normal very physical activity. Diagnoses and all orders for this visit: Post-operative state (Z98.890) (Primary) documented in this encounter Plan of Treatment Not on file documented as of this encounter Visit Diagnoses Diagnosis Post-operative state- Primary Other postprocedural status documented in this encounter Care Teams Secondary Social Studies Teacher Relationship Specialty Start Date End Date Makenzie Carrasco MD [address] [place] [address] PCP - General Family Medicine 02/07/25 Colby Rodriguez MD [address] [address] Consulting Physician Obstetrics and Gynecology 02/09/25 documented as of this encounter
== END 2025-02-24 16:12 | disposition home or self-care (01) ==
PROVIDERS: PCP Family Medicine; Visit Provider Physician Assistant
DX: R22.31 Localized swelling, mass and lump, right upper limb (principal)
CPT/HCPCS: 76882